=== PATIENT | female | born 1945 | race Caucasian/White ===

== ENCOUNTER → 2018-09-12 | Outpatient (CLI) | payer MEDICARE, OTHER ==
[~2018-09-12] MED LIST: B.AN1CAP2 PO; CALC500T76 PO; CHOL100060 PO; GLUC-307 PO; LOR1 PO; LYSI500T34 PO; MULT-1335 PO
--- NOTE | 2018-09-13 09:13 | RADIOLOGY IMAGING REPORT ---
FACILITY: [facility] PATIENT NAME: TYSON CASTAÑEDA : [id number] MR: [id number] V: [id number] EXAM DATE: [id number] ORDERING PHYSICIAN: MIRIAM MCKEON TECHNOLOGIST: Junaa Price PROCEDURE:BILATERAL DIGITAL SCREENING MAMMOGRAM WITH CAD ASSISTED INTERPRETATION & 3D TOMOSYNTHESIS COMPARISON:Prior mammograms dated 07/20/16 & 03/05/14 INDICATIONS:SCREENING FINDINGS: The breasts are heterogeneously dense which can obscure small masses. The parenchymal pattern has remained stable when allowing for differences in mammographic technique & patient positioning. DIAGNOSTIC CATEGORY 1--NEGATIVE. RECOMMENDATIONS: ROUTINE MAMMOGRAM AND CLINICAL EVALUATION. IMPRESSION: BIRADS 1: Negative. No significant abnormality is seen. Dictated by: Alisha Pedersen M.D. on 09/12/2018 at 16:06 Transcribed by: TANNER on 09/13/2018 at 8:15 Approved by: Alisha Pedersen M.D. on 09/13/2018 at 9:12 [facility]
== END ==
LOC: MAMO 00:46
PROVIDERS: ATTEND Family Medicine
DX: Z12.31 Encounter for screening mammogram for malignant neoplasm of breast (principal); N95.1 Menopausal and female climacteric states
CPT/HCPCS: 77063; 77067

== ENCOUNTER → 2018-10-02 | Outpatient (CLI) | payer MEDICARE, OTHER ==
--- NOTE | 2018-10-02 11:43 | RADIOLOGY IMAGING REPORT ---
FACILITY: [facility] PATIENT NAME: Sushila Meza : 1945 MR: [id number] V: [id number] EXAM DATE: ORDERING PHYSICIAN: MIRIAM MCKEON TECHNOLOGIST: Location: [facility] Patient: Sushila Meza : 1945 Visit/Account:[id number] Date of Sevice: 10/02/2018 DEXA Scan Clinical history: Screening. Comparison: DEXA scan from 02/24/2010. LUMBAR SPINE: The bone mineral density (BMD) measured from L1-L4 correlates with a Z-score of -0.1 and a T-score of -1.9 which is osteopenia as defined by the World Health Organization. The corresponding risk of fra cture in the lumbar spine is 3-4 times increased compared with a young adult reference population. T his value has decrease by two % since the prior study. More than 5% change is considered significant . HIP: Bone mineral density (BMD) measured in the LEFT total hip region correlates with a Z-score zero and a T-score of -1.6 which is osteopenia as defined by the World Health Organization. The corresponding risk of fracture in the hip is 3-4 times increased compared to a young adult reference population. Th is value has decreased by 6.8 % since the prior study. More than 5% change is considered significant . T score left femoral neck -2.1 Bone mineral density (BMD) measured in the Femoral Neck region measures 0.749 g/cm?. IMPRESSION: 1. Lumbar spine: Osteopenia. There has been 2% decrease in the bone mineral density since the previ ous exam. 2. Left Total Hip: Osteopenia. There has been 6.8% decrease in the bone mineral density since the p revious exam. 3. Femoral Neck: Bone Mineral Density is 0.749 g/cm? The next DEXA scan of this patient should include the following sites: L1-L4 and the left hip. FRAX? WHO Fracture Risk Assessment Tool link: <http://www.shef.ac.uk/FRAX/tool.jsp?locationValue=9> PLEASE NOTE: 1) The World Health Organization defines low BMD as follows: T-score Normal > -1 Osteopenia < -1 and > -2.5 Osteoporosis < -2.5 without fractures Established osteoporosis < -2.5 with fractures 2) In general, you may wish to consider: Diagnosis Treatment Follow-up DEXA Normal BMD Prevention 2-3 years Osteopenia Prevention/therapy 1-2 years Osteoporosis Therapy Yearly 3) Fracture risk estimated from the T-score is more accurate for vertebral fractures (often spontane ous) than for hip fractures. Report Dictated By: Alisha Pedersen MD at 10/02/2018 11:38 AM Report E-Signed By: Alisha Pedersen MD at 10/02/2018 11:39 AM WSN:[email or web address]
== END ==
LOC: RAD 00:36
PROVIDERS: ATTEND Family Medicine
DX: M85.89 Other specified disorders of bone density and structure, multiple sites (principal)
CPT/HCPCS: 77080